=== PATIENT | female | born 1980 ===

== ENCOUNTER 2020-07-10 11:02 | Day surgery (SDC) | payer OTHER ==
[~2020-07-10 11:02] MED LIST: ZYRT PO
[2020-07-10] MEDS ORDERED: KETO10TA2 PO (15:32)
== END 2020-07-10 20:30 | disposition home or self-care (01) ==
LOC: CIR.AMB 11:02
PROVIDERS: ATTEND Obstetrics & Gynecology
DX: N84.0 Polyp of corpus uteri (principal); Z20.828 Contact with and (suspected) exposure to other viral communicable diseases